=== PATIENT | female | born 1995 | race African-American/Black ===

== ENCOUNTER → 2023-10-01 | Emergency (ER) | payer SELFPAY ==
[~2023-10-01] MED LIST: BUPIVACAINE 0.5% PF 10 ML VIAL ONE; LIDOCAINE 1% MPF 5 ML VIAL ONE
--- NOTE | 2023-10-01 18:52 | RAD REPORT ---
EXAM DESCRIPTION: RAD - Foot Right 3 View - 10/01/2023 6:41 pm CLINICAL HISTORY: PAIN COMPARISON: <Comparisons> FINDINGS: Moderate soft tissue swelling is seen affecting the great toe. No acute fracture or disloc ation.
--- NOTE | 2023-10-01 20:21 | ER ---
Nurse's Notes [facility] Name: Carole Rinaldi Age: 28 yrs Sex: Female : 1995 Arrival Date: 10/01/2023 Time: 17:48 Bed 11 Private MD: Diagnosis: Contusion of left great toe with damage to nail Presentation: 10/01 17:57 Chief complaint: Patient states: Pt kicked left great toe into a landing at approx 1600 tl4 today. Bleeding controlled. Toe nail appears raised up. Coronavirus screen: Vaccine status: Patient reports receiving the 2nd dose of the covid vaccine. At this time, the client does not indicate any symptoms associated with coronavirus-19. Ebola Screen: Patient negative for fever greater than or equal to 101.5 degrees Fahrenheit, and additional compatible Ebola Virus Disease symptoms Patient denies exposure to infectious person. Patient denies travel to an Ebola-affected area in the 21 days before illness onset. No symptoms or risks identified at this time. Initial Sepsis Screen: Does the patient meet any 2 criteria? No. Patient's initial sepsis screen is negative. Does the patient have a suspected source of infection? No. Patient's initial sepsis screen is negative. Risk Assessment: Do you want to hurt yourself or someone else? Patient reports no desire to harm self or others. Onset of symptoms was October 01, 2023 at 16:00. 17:57 Method Of Arrival: Ambulatory tl4 17:57 Acuity: ALY 3 tl4 Triage Assessment: 20:54 General: Appears in no apparent distress. Behavior is calm, cooperative. Pain: tl4 Complains of pain in left first toe. 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 - Social history:: Smoking status: Patient denies any tobacco usage or history of. Screenin:21 [facility] ED Fall Risk Assessment (Adult) History of falling in the last 3 months, bp including since admission No falls in past 3 months (0 pts). Abuse screen: Denies threats or abuse. Denies injuries from another. Nutritional screening: No deficits noted. Tuberculosis screening: No symptoms or risk factors identified. Vital Signs: 17:57 BP 132 / 90; Pulse 63; Resp 18; Temp 97.9(TE); Pulse Ox 100% on R/A; Weight 81.65 kg; tl4 Height 5 ft. 2 in. ; Pain 8/10; 20:55 BP 119 / 74; Pulse 65; Resp 18; Pulse Ox 99% on R/A; Pain 3/10; tl4 17:57 Body Mass Index 32.92 (81.65 kg, 157.48 cm) tl4 17:57 Pain Scale: Adult tl4 20:55 Pain Scale: Adult tl4 ED Course: 17:49 Patient arrived in ED. ae5 17:53 Shyanne Lee FNP-C is PHCP. kb 17:53 Red Michael MD is Attending Physician. kb 18:00 Triage completed. tl4 18:00 Arm band placed on right wrist. tl4 18:43 Foot Right 3 View XRAY In Process Unspecified. EDMS 19:33 Oral Squires, RN is Primary Nurse. bp 20:19 Assist provider with nail repair of avulsion of left great toe using SUTURE Set up for bp procedure. Performed by Shyanne MIRZA Dressed with 4X4s. Patient did not have IV access during this emergency room visit. 20:21 Patient has correct armband on for positive identification. bp 20:55 Provided Education on: ed process. tl4 Administered Medications: 19:46 Drug: Lidocaine Infiltration (1 %) 1 vials 5 ml Infiltration once; to bedside Volume: 5 bp ml; Route: Infiltration; 20:54 Follow up: Response: No adverse reaction tl4 19:46 Drug: Bupivacaine Infiltration (0.5 %) 1 vials 10 ml Infiltration once Volume: 10 ml; bp Route: Infiltration; 20:54 Follow up: Response: No adverse reaction tl4 Medication: 20:55 VIS not applicable for this client. tl4 Outcome: 20:19 Discharged to home ambulatory, bp 20:19 Condition: stable 20:19 Discharge instructions given to patient, Instructed on discharge instructions, follow up and referral plans. Demonstrated understanding of instructions, follow-up care, 20:20 Discharge ordered by . kb 20:56 Patient left the ED. tl4 Signatures: Dispatcher [employer] EDMS Shyanne Lee FNP-C REFINERY OPERATOR HELPER CRACKING UNIT-Ckb Oral Squires, RN RN bp Blas Liu tl4 Eva Parker ae5
--- NOTE | 2023-10-01 20:21 | EDPHYS ---
Physician Documentation [facility] Name: Carole Rinaldi Age: 28 yrs Sex: Female : 1995 Arrival Date: 10/01/2023 Time: 17:48 Bed 11 Private MD: ED Physician Red Michael HPI: 10/01 19:59 This 28 yrs old Black Female presents to ER via Ambulatory with complaints of Toe kb Problem. 20:21 Patient is a 28-year-old female with no medical history who presents for partial nail kb avulsion left great toe. States she accidentally kicked a ledge in her grandmother's house.. 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 - Social history:: Smoking status: Patient denies any tobacco usage or history of. ROS: 20:00 Constitutional: Negative for fever, chills, and weight loss, kb 20:00 MS/extremity: Positive for pain, partial nail avulsion, 20:00 All other systems are negative, Exam: 20:00 Constitutional: This is a well developed, well nourished patient who is awake, alert, kb and in no acute distress. Head/Face: Normocephalic, atraumatic. ENT: Moist Mucous membranes Cardiovascular: Regular rate Respiratory: Respirations even and unlabored. No increased work of breathing. Talking in full sentences Skin: Warm, dry with normal turgor. Normal color. Neuro: Awake and alert, GCS 15, oriented to person, place, time, and situation. Moves all extremities. Normal gait. 20:00 Musculoskeletal/extremity: Extremities: grossly normal except: noted in the left first toe: pain, partial nail avulsion, ROM: intact in all extremities, Circulation is intact in all extremities. Sensation intact. Weight bearing: able to fully bear weight, Nails: partial avulsion, of the left first toe, Vital Signs: 17:57 BP 132 / 90; Pulse 63; Resp 18; Temp 97.9(TE); Pulse Ox 100% on R/A; Weight 81.65 kg; tl4 Height 5 ft. 2 in. ; Pain 8/10; 20:55 BP 119 / 74; Pulse 65; Resp 18; Pulse Ox 99% on R/A; Pain 3/10; tl4 17:57 Body Mass Index 32.92 (81.65 kg, 157.48 cm) tl4 17:57 Pain Scale: Adult tl4 20:55 Pain Scale: Adult tl4 Procedures: 20:01 Nerve block: (digital) of left first toe Medication: Lidocaine 1% without epinephrine kb Marcaine 0.5%, Amount: 5 mls were injected, Effect: the patient has resolution of the pain, Set up for procedure. Performed by Shyanne MIRZA Patient tolerated well. MDM: 17:53 Patient medically screened. kb 19:53 Data reviewed: vital signs, nurses notes. kb 20:01 Differential diagnosis: fracture, contusion, laceration, nail avulsion. Counseling: I kb had a detailed discussion with the patient and/or guardian regarding the historical points, exam findings, and any diagnostic results supporting the discharge/admit diagnosis, radiology results, the need for outpatient follow up, a family practitioner, to return to the emergency department if symptoms worsen or persist or if there are any questions or concerns that arise at home. 20:21 ED course: Nail lifted and nailbed cleaned, nail replaced and [id number] suture kb inserted to keep nail in place. Patient educated to have suture removed in 10 to 14 days.. 10/01 18:01 Order name: Foot Right 3 View XRAY; Complete Time: 18:59 kb Administered Medications: 19:46 Drug: Lidocaine Infiltration (1 %) 1 vials 5 ml Infiltration once; to bedside Volume: 5 bp ml; Route: Infiltration; 20:54 Follow up: Response: No adverse reaction tl4 19:46 Drug: Bupivacaine Infiltration (0.5 %) 1 vials 10 ml Infiltration once Volume: 10 ml; bp Route: Infiltration; 20:54 Follow up: Response: No adverse reaction tl4 Disposition: 10/02 08:58 Co-signature as Attending Physician, Red Michael MD I reviewed the patient's care rn provided by the Advanced Practice Provider and agree with the diagnosis and treatment plan. Disposition Summary: 10/01/23 20:20 Discharge Ordered Notes: Location: Home kb Condition: Stable kb Diagnosis - Contusion of left great toe with damage to nail kb Followup: kb - With: Emergency Department - When: As needed - Reason: Worsening of condition Followup: kb - With: Private Physician - When: 2 - 3 days - Reason: Recheck today's complaints, Continuance of care, Re-evaluation by your physician Discharge Instructions: - Discharge Summary Sheet kb - Nail Avulsion kb - Contusion, [id number] kb Forms: - Medication Reconciliation Form kb - Thank You Letter kb - Antibiotic Education kb - Prescription Opioid Use kb - Patient Portal Instructions kb - Leadership Thank You Letter kb Signatures: Dispatcher [employer] EDMS Shyanne Lee, GLUE MACHINE OPERATOR-C GLUE MACHINE OPERATOR-Ckb Red Michael MD MD rn Oral Squires RN RN Blas Morse tl4 Corrections: (The following items were deleted from the chart) 10/01 20:02 20:00 Musculoskeletal/extremity: Extremities: grossly normal except: kb kb
[2023-10-01 21:11] VITALS: BP 119/74; TEMP 97.9; O2SAT 99
== END ==
LOC: ER 17:48
DX: S90.212A Contusion of left great toe with damage to nail, initial encounter (principal)
CPT/HCPCS: 64450; 99283; J2001